=== PATIENT | male | born 1955 | race Caucasian/White ===

== ENCOUNTER 2016-02-26 15:40 | Inpatient (IN) | payer BC, OTHER ==
[~2016-02-26] VITALS: Ht 180.3 cm; Wt 85.5 kg
[~2016-02-26 15:40] MED LIST: ALLO100T PO; LISI-363 PO; MEVA40TA PO; PRED10 PO; ULTR50TA PO
[2016-02-26 15:46] VITALS: BP 205/115; PULSE 92; RESP 14; TEMP 97.5; O2SAT 95
[2016-02-26 17:30] LABS: AUTOMATED NEUTROPHIL # 5.6 TH/MM3 (1.8-7.7); BASOPHIL # 0.1 TH/MM3 (0-0.2); EOSINOPHIL # 0.1 TH/MM3 (0-0.4); EOSINOPHIL % 1.3 % (0.0-4.0); HEMATOCRIT 33.6 % (39.0-51.0); LYMPH % 18.9 % (9.0-44.0); LYMPHOCYTE # 1.5 TH/MM3 (1.0-4.8); MEAN CELL VOLUME 75.6 FL (80.0-100.0); MEAN CORPUSCULAR HEMOGLOBIN 24.8 PG (27.0-34.0); MEAN CORPUSCULAR HGB CONC 32.8 % (32.0-36.0); MONO % 8.7 % (0.0-8.0); NEUT % 70.1 % (16.0-70.0); PLATELET COUNT 297 TH/MM3 (150-450); RED BLOOD COUNT 4.44 MIL/MM3 (4.50-5.90); WHITE BLOOD COUNT 7.9 TH/MM3 (4.0-11.0)
[2016-02-26 17:32] LABS: HEMO FLAGS AUTO DIFF
[2016-02-26 17:49] LABS: ANION GAP 9 MEQ/L (5-15); AST (GOT) 17 U/L (15-37); BICARBONATE 24.9 MEQ/L (21.0-32.0); BLOOD UREA NITROGEN 22 MG/DL (7-18); CHLORIDE 106 MEQ/L (98-107); GLOMERULAR FILTRATION RATE 86 ML/MIN (>89); POTASSIUM 4.1 MEQ/L (3.5-5.1); SODIUM (NA) 140 MEQ/L (136-145)
[2016-02-26 17:52] LABS: APTT (PATIENT) 29.9 SEC (24.3-30.1); INTERNATIONAL NORMALIZED RATIO 1.2 RATIO; PROTHROMBIN TIME - PATIENT 13.9 SEC (9.8-11.6)
[2016-02-26 17:53] LABS: ALKALINE PHOSPHATASE 55 U/L (45-117); ALT (GPT) 34 U/L (12-78); TOTAL BILIRUBIN ADULT 0.5 MG/DL (0.2-1.0)
[2016-02-26 18:17] LABS: OVALOCYTES 1+ (NORMAL); PLATELET ESTIMATE SMEAR NORMAL (NORMAL); PLATELET MORPHOLOGY NORMAL (NORMAL); SCAN/DIFF AUTO DIFF CONFIRMED
[2016-02-26 19:15] VITALS: BP 185/90; PULSE 90; RESP 16; O2SAT 99
[2016-02-26] MEDS ORDERED: LISI-515 PO (19:17)
[2016-02-26] MEDS ORDERED: LOVA40TA PO (19:17)
[2016-02-26] MEDS ORDERED: PANTOPRAZOLE INJ 80 MG in SODIUM CHLORIDE 0.9% INJ 35 ML IV ONE (19:45)
[2016-02-26] MEDS ORDERED: ONDANSETRON HCL 4 MG/2 ML VIAL IV ONE (19:45)
[2016-02-26] MEDS ORDERED: SODIUM CHLOR 0.9% 1000 ML INJ 1,000 ML IV ONE (19:45)
[2016-02-26] MEDS ORDERED: PANTOPRAZOLE INJ 80 MG in SODIUM CHLORIDE 0.9% INJ 100 ML IV SCH (19:45)
--- NOTE | 2016-02-26 19:45 | PD ---
HPI Chief Complaint: GI Complaint Time Seen by Provider: 19:35 Travel History International Travel<30 days: No Contact w/Intl Traveler<30days: No Traveled to known affect area: No History of Present Illness HPI The patient is a 60 year old male who presents to the [facility] emergency department with a history of on beginning to have lax tarry stools. The patient reports that he's been moving his bowels 2-3 times per day. He reports that this is typical for him. He denies having any nausea or vomiting. He reports that he is also had some abdominal bloating, reflux symptoms, and more frequent belching. He denies taking any acid reducers at this time. He reports that he does have a history in the past of a bleeding ulcer, last treated in 2012. He reports that he called his primary care doctor's office regarding this and was sent to the emergency department today. He reports that his primary care doctor is Dr. Ariela Ramos. The patient reports that he felt slightly lightheaded when he arrived in the emergency department, however otherwise he has not felt lightheaded, or weak. The patient denies any recent fevers, cough, congestion, neck pain, chest pain, shortness of breath, urinary symptoms, or neurologic symptoms. PFS Past Medical History Narrative Medical The patient's past medical history is significant for peptic ulcer disease, hyperlipidemia, hypertension High Cholesterol: Yes Diminished Hearing: No Hypertension: Yes Kidney Stones: Yes Medical other: Yes (GASTRIC ULCER BLEEDING) Tetanus Vaccination: Unknown Influenza Vaccination: Yes Past Surgical History Narrative Surgical The patient denies any past surgical history. Surgical History: No Previous Surgery Social History Alcohol Use: Yes (FEW TIMES PER WEEK) Tobacco Use: No Substance Use: No Allergies-Medications (Allergen,Severity, Reaction): Coded Allergies: No Known Allergies (Unverified , 02/26/16) Reported Meds & Prescriptions Reported Meds & Active Scripts Active Reported Lovastatin 40 Mg Tab 40 Mg PO DAILY Lisinopril 20 Mg Tab 20 Mg PO DAILY Review of Systems Except as stated in HPI: all other systems reviewed are Neg General / Constitutional: No: Fever Eyes: No: Visual changes HENT: No: Headaches Cardiovascular: No: Chest Pain or Discomfort Respiratory: No: Shortness of Breath Gastrointestinal: Positive: Abdominal Pain, Changes in Bowel Habits, Indigestion Genitourinary: No: Dysuria Musculoskeletal: No: Pain Skin: No Rash Neurologic: No: Weakness Psychiatric: No: Depression Endocrine: No: Polydipsia Hematologic/Lymphatic: No: Easy Bruising Physical Exam Narrative General: The patient is a well-developed well-nourished male in no acute distress. Head and Neck exam: Head is normocephalic atraumatic. Eyes: People are equal round and reactive to light. Nose: Midline septum with pink mucous membranes Mouth: Dentition unremarkable. Moist mucus membranes. Posterior oropharynx is not erythematous. No tonsillar hypertrophy. Uvula midline. Airway patent. Neck: No palpable lymphadenopathy. No nuchal rigidity. No thyromegaly. Cardiovascular: Regular rate and rhythm without murmurs, gallops, or rubs. Lungs: Clear to auscultation bilaterally. No wheezes, rhonchi, or rales. Abdomen: Soft, with reported discomfort on deep palpation in the right lower quadrant of the abdomen. No other pinpoint tenderness on palpation. No guarding, rebound, or rigidity. Normal bowel sounds are audible. Extremities: No clubbing, cyanosis, or edema. 2+ pulses in all 4 extremities. No calf tenderness on palpation. Back: No spinous process tenderness to palpation. No costovertebral angle tenderness to palpation. Neurologic Exam: Grossly nonfocal. Skin Exam: No rash noted. Intact skin that is warm and dry. Data Data Last Documented VS Vital Signs Date Time Temp Pulse Resp B/P Pulse Ox O2 Delivery O2 Flow Rate FiO2 02/26/16 19:18 16 02/26/16 15:46 97.5 92 205/115 95 Room Air Orders Complete Blood Count With Diff (02/26/16 16:39) Comprehensive Metabolic Panel (02/26/16 16:39) Prothrombin Time / Inr (Pt) (02/26/16 16:39) Act Partial Throm Time (Ptt) (02/26/16 16:39) Type And Screen (02/26/16 16:39) Ct Abd/Pel W Iv Contrast(Rout) (02/26/16 19:45) Sodium Chlor 0.9% 1000 Ml Inj (Ns 1000 M (02/26/16 19:45) Ondansetron Inj (Zofran Inj) (02/26/16 19:45) Pantoprazole Inj (Protonix Inj) (02/26/16 19:45) Pantoprazole Inj (Protonix Inj) (02/26/16 19:45) Oral Contrast - Adult (02/26/16 20:03) Admit Order (Ed Use Only) (02/26/16 20:07) Labs Laboratory Tests Test 02/26/16 16:55 White Blood Count 7.9 TH/MM3 Red Blood Count 4.44 MIL/MM3 Hemoglobin 11.0 GM/DL Hematocrit 33.6 % Mean Corpuscular Volume 75.6 FL Mean Corpuscular Hemoglobin 24.8 PG Mean Corpuscular Hemoglobin 32.8 % Concent Red Cell Distribution Width 17.0 % Platelet Count 297 TH/MM3 Mean Platelet Volume 9.7 FL Neutrophils (%) (Auto) 70.1 % Lymphocytes (%) (Auto) 18.9 % Monocytes (%) (Auto) 8.7 % Eosinophils (%) (Auto) 1.3 % Basophils (%) (Auto) 1.0 % Neutrophils # (Auto) 5.6 TH/MM3 Lymphocytes # (Auto) 1.5 TH/MM3 Monocytes # (Auto) 0.7 TH/MM3 Eosinophils # (Auto) 0.1 TH/MM3 Basophils # (Auto) 0.1 TH/MM3 CBC Comment AUTO DIFF Differential Comment AUTO DIFF CONFIRMED Platelet Estimate NORMAL Platelet Morphology Comment NORMAL Ovalocytes 1+ Prothrombin Time 13.9 SEC Prothromb Time International 1.2 RATIO Ratio Activated Partial 29.9 SEC Thromboplast Time Sodium Level 140 MEQ/L Potassium Level 4.1 MEQ/L Chloride Level 106 MEQ/L Carbon Dioxide Level 24.9 MEQ/L Anion Gap 9 MEQ/L Blood Urea Nitrogen 22 MG/DL Creatinine 0.91 MG/DL Estimat Glomerular Filtration 86 ML/MIN Rate Random Glucose 90 MG/DL Calcium Level 8.9 MG/DL Total Bilirubin 0.5 MG/DL Aspartate Amino Transf 17 U/L (AST/SGOT) Alanine Aminotransferase 34 U/L (ALT/SGPT) Alkaline Phosphatase 55 U/L Total Protein 7.1 GM/DL Albumin 4.0 GM/DL Blood Type AB POSITIVE Antibody Screen NEGATIVE Blood Bank Comment [facility] Medical Decision Making Medical Screen Exam Complete: Yes Emergency Medical Condition: Yes Medical Record Reviewed: Yes Differential Diagnosis Peptic ulcer disease, versus AVM malformation, versus diverticulosis, versus hemorrhagic esophagitis Narrative Course During the course of the patients emergency department visit, the patients history, examination, and differential diagnosis were reviewed with the patient. The patient had IV access obtained and blood work sent for analysis. The patient was placed on a gold wheel blocker and polisher with oximetry and blood pressure monitoring. The patient was provided Protonix 80 mg IV followed by Protonix 80 mg IV per hour. The patients laboratory studies were reviewed and remarkable for a white count of 7.9, hemoglobin 11, MCV is low at 75.6, platelets 297, neutrophils 70.1, monocytes 8.7. CMP is remarkable for BUN of 22, INR 1.2. The patient's elevated BUN and low MCV and low hemoglobin are consistent with a GI bleed. The patient's rectal examination is Hemoccult positive. Radiology studies were reviewed and remarkable for a CT scan of the abdomen and pelvis that shows no acute abnormality, diverticulosis, however no evidence of diverticulitis, a tiny left renal mass is possible on one of the images on CT scan of the abdomen and pelvis. Radiologist recommended a nonemergent MRI to further evaluate. The patients results were discussed with the patient, including the plan of care. I explained that further testing and/ or monitoring is indicated based on the patients history, examination, and/ or laboratory findings. Therefore, I recommended admission for additional evaluation. The patient expressed understanding and was agreeable with this plan. The patient was admitted to the hospital in stable condition and sent to a bed under the [facility] of the [facility]. Physician Communication Physician Communication The patient's case is discussed with Dr. Zepeda, the patient's primary care physician. He reports that he is no longer admitting patients to the hospital, therefore he recommends that the patient be discussed with the [facility] service for admission. The patient's case was discussed with Dr. Quijano who did agree to admit the patient for further evaluation and treatment at this time. Diagnosis Primary Impression: GI bleed Qualified Code: K92.2 - Gastrointestinal hemorrhage, unspecified gastrointestinal hemorrhage type Admitting Information Admitting Physician Requests: Lizette Cordova MD Feb 26, 2016 19:45
[2016-02-26] MEDS ORDERED: DIATRIZOATE MEGLUM/DIATRIZOATE SOD 9 ML CUP ONE (20:23)
[2016-02-26] MEDS ORDERED: NALOXONE HCL 0.4 MG/ML AMP IV PRN (20:45)
[2016-02-26] MEDS ORDERED: SODIUM CHLORIDE 0.9% FLUSH 5 ML FLUSH FLUSH PRN (20:45)
[2016-02-26] MEDS ORDERED: IOHEXOL 350 MG/ML 10 ML VIAL (for RAD DIAG) IV ONE (21:05)
--- NOTE | 2016-02-26 21:26 | RADRPT ---
EXAM DATE/TIME: 02/26/2016 21:03 [place] COMPARISON: No previous studies available for comparison. INDICATIONS : Abdominal pain and bloody stools. IV CONTRAST: 95 cc Omnipaque 350 (iohexol) IV ORAL CONTRAST: Prescribed oral contrast ingested. RADIATION DOSE: 12.95 CTDIvol (mGy) MEDICAL HISTORY : Hypertension. Renal calculi. SURGICAL HISTORY : Colon resection. ENCOUNTER: Initial ACUITY: 4 - 6 days PAIN SCALE: 5/10 LOCATION: Bilateral lower quadrant TECHNIQUE: Volumetric scanning of the abdomen and pelvis was performed. Using automated exposure control and ad justment of the mA and/or kV according to patient size, radiation dose was kept as low as reasonably achievable to obtain optimal diagnostic quality images. FINDINGS: Hepatic steatosis. Nonobstructing 6 mm calculus in the right renal pelvis. 2 mm obstructing lower neli e right renal calculus. On axial image 36 at the mid left kidney anteriorly a 7 mm slightly hypodense mass is suspected of the left kidney as seen on coronal image 55. The possibility of a small solid m ass is not excluded. Urinary bladder and prostate are unremarkable. There is diverticulosis is of the sigmoid colon without evidence of diverticulitis. Stomach unremarkable. Appendix normal. Scattered a therosclerotic calcifications are seen. Spleen, pancreas, adrenal glands are normal. There is no vincent opathy. No aneurysm. The osseous structures are intact. Lung bases are clear. CONCLUSION: 1. Hepatic steatosis. 2. Nonobstructing right renal calculi. 3. Mild atherosclerosis. 4. Diverticulosis without diverticulitis. 5. Question tiny left solid renal mass on image 36. MRI abdomen with and without contrast recommended on a nonemergent outpatient basis. Kevyn Hall MD on February 26, 2016 at 21:21 Board Certified Radiologist. This report was verified electronically.
[2016-02-26] MEDS: SODIUM CHLORIDE 0.9% FLUSH 5 ML FLUSH FLUSH SCH (22:21)
[2016-02-26 22:46] LABS: HEMATOCRIT 25.8 % (39.0-51.0); REVIEW FLAG FINAL
[2016-02-26 23:30] VITALS: BP 170/88; PULSE 80; RESP 16; O2SAT 99
[2016-02-27] VITALS (10 sets, daily range): BP systolic 127–173; BP diastolic 62–88; PULSE 63–91; RESP 14–18; TEMP 97.1–98.3; O2SAT 98–100
[2016-02-27 02:43] LABS: HEMATOCRIT 26.6 % (39.0-51.0); REVIEW FLAG FINAL
--- NOTE | 2016-02-27 02:49 | HHI.HP ---
[facility] Unknown Admission Diagnosis GI Bleed Diagnoses: Chief Complaint: Black stool Travel History International Travel<30 Days: No Contact w/Intl Traveler <30 Da: No Traveled to Known Affected Are: No History of Present Illness History from patient, ER physician communication, and review of medical records. Patient reported that he has been having black color stools since . He reports he has history of peptic ulcer disease at which time he presented with similar black color stools. This was back in 2012. He decided therefore to contact to hospital. He denies any chest pain/shortness of breath/dizziness/near syncope episode. He denies any nausea or vomiting or hematemesis or hematochezia. Denies any hematuria. Reports of mild abdominal cramping. Patient denies taking any blood thinners at home. He is not on aspirin. Not taking any NSAIDs. Denies drinking alcohol heavily. He reports that since the last time he had EGD in 2012 for this peptic ulcer disease, he has not had a repeat EGD. Review of Systems Constitutional: DENIES: Fatigue, Fever, Weight gain, Weight loss, Chills, Dizziness Respiratory: DENIES: Apneas, Cough, Wheezing, Hemoptysis, Sputum production, Shortness of breath Cardiovascular: DENIES: Chest pain, Palpitations, Syncope, Dyspnea on Exertion , PND, Orthopnea Gastrointestinal: COMPLAINS OF: Abdominal pain, Black stools, DENIES: Bloody stools, Constipation, Diarrhea, Nausea, Vomiting Genitourinary: DENIES: Urinary frequency, Urinary incontinence, Urgency, Hematuria, Dysuria, Nocturia Neurologic: DENIES: Abnormal gait, Headache, Paresthesias, Seizures, Speech Problems Past Family Social History Past Medical History Hypertension Hyperlipidemia Peptic ulcer disease History of renal stones Gout Past Surgical History EGD Reported Medications Patient's medications list on EMRreviewed. Allergies: Coded Allergies: No Known Allergies (Unverified , 02/26/16) Family History Reports history of aortic valve replacement in his father at 82 years old. Father 5 months after this surgery. His father had history of coronary artery disease with DE around 40 years old. History of mother having kidney stones. Social History Denies smoking/alcohol abuse/drug abuse. Physical Exam Vital Signs Vital Signs Date Time Temp Pulse Resp B/P Pulse Ox O2 Delivery O2 Flow Rate FiO2 02/26/16 19:18 16 02/26/16 15:46 97.5 92 14 205/115 95 Room Air Physical Exam GENERAL: This is a well-nourished, well-developed patient, in no apparent distress. SKIN: No rashes, ecchymoses or lesions. Cool and dry. HEAD: Atraumatic. Normocephalic. No temporal or scalp tenderness. EYES: No scleral icterus. No injection or drainage. ENT: Nose without bleeding, purulent drainage or septal hematoma. Airway patent. NECK: Trachea midline. No JVD CARDIOVASCULAR: Regular rate and rhythm without murmurs, gallops, or rubs. RESPIRATORY: Clear to auscultation. Breath sounds equal bilaterally. No wheezes , rales, or rhonchi. GASTROINTESTINAL: Abdomen soft, non-tender, nondistended.. No guarding. MUSCULOSKELETAL: Extremities without clubbing, cyanosis, or edema. No calf tenderness. NEUROLOGICAL: Awake and alert. Motor and sensory grossly within normal limits. Normal speech. Laboratory Laboratory Tests Test 02/26/16 02/26/16 02/26/16 02/27/16 16:55 20:31 22:20 02:30 White Blood Count 7.9 Red Blood Count 4.44 Hemoglobin 11.0 8.8 8.9 Hematocrit 33.6 25.8 26.6 Mean Corpuscular Volume 75.6 Mean Corpuscular Hemoglobin 24.8 Mean Corpuscular Hemoglobin 32.8 Concent Red Cell Distribution Width 17.0 Platelet Count 297 Mean Platelet Volume 9.7 Neutrophils (%) (Auto) 70.1 Lymphocytes (%) (Auto) 18.9 Monocytes (%) (Auto) 8.7 Eosinophils (%) (Auto) 1.3 Basophils (%) (Auto) 1.0 Neutrophils # (Auto) 5.6 Lymphocytes # (Auto) 1.5 Monocytes # (Auto) 0.7 Eosinophils # (Auto) 0.1 Basophils # (Auto) 0.1 CBC Comment AUTO DIFF Differential Comment AUTO DIFF CONFIRMED Platelet Estimate NORMAL Platelet Morphology Comment NORMAL Ovalocytes 1+ Prothrombin Time 13.9 Prothromb Time International 1.2 Ratio Activated Partial 29.9 Thromboplast Time Sodium Level 140 Potassium Level 4.1 Chloride Level 106 Carbon Dioxide Level 24.9 Anion Gap 9 Blood Urea Nitrogen 22 Creatinine 0.91 Estimat Glomerular Filtration 86 Rate Random Glucose 90 Calcium Level 8.9 Total Bilirubin 0.5 Aspartate Amino Transf 17 (AST/SGOT) Alanine Aminotransferase 34 (ALT/SGPT) Alkaline Phosphatase 55 Total Protein 7.1 Albumin 4.0 Blood Type AB POSITIVE AB POSITIVE AB POSITIVE Antibody Screen NEGATIVE Blood Bank Comment B Crossmatch Leukocyte-Reduced Red Blood Cells Result Diagram: 02/27/16 0230 02/26/16 1655 Imaging Last 48 hours Impressions Abdomen/Pelvis CT 02/26/161944 Signed Impressions: Service Date/Time: Friday, February 26, 2016 21:03 - CONCLUSION: 1. Hepatic steatosis. 2. Nonobstructing right renal calculi. 3. Mild atherosclerosis. 4. Diverticulosis without diverticulitis. 5. Question tiny left solid renal mass on image 36. MRI abdomen with and without contrast recommended on a nonemergent outpatient basis. Kevyn Hall MD Assessment and Plan Problem List: (1) GI bleed ICD Code: K92.2 Status: Acute Assessment and Plan Impression: Upper GI bleedlikely due to peptic ulcer disease. Hypertension Hyperlipidemia Peptic ulcer disease History of renal stones Gout Plan: Nothing by mouth. Type and cross. Serial hemoglobin hematocrit. Repeat hemoglobin dropped to 8.8. Therefore transfuse 2 units of PRBC. GI consult. Protonix IV drip. Hold all blood thinners. Hold NSAIDs. CT abdomen and pelvispersonally reviewed. Nonobstructive renal calculi on the right. Diverticulosis without diverticulitis. Questionable left renal solid mass. MRI recommended as nonemergent outpatient study. DVT prophylaxison SCD. GI prophylaxis on pantoprazole. Discussed Condition With Patient, ER physician, ER nurse Physician Certification 2 Midnight Certification Type: Admission for Inpatient Services Order for Inpatient Services The services are ordered in accordance with Medicare regulations or non- Medicare payer requirements, as applicable. In the case of services not specified as inpatient-only, they are appropriately provided as inpatient services in accordance with the 2-midnight benchmark. Estimated LOS (days): 3 days is the estimated time the patient will need to remain in the hospital, assuming treatment plan goals are met and no additional complications. Post-Hospital Plan: Home Problem Qualifiers (1) GI bleed: Qualified Code: K92.2 - Gastrointestinal hemorrhage, unspecified gastrointestinal hemorrhage type Guilherme Quijano MD Feb 27, 2016 02:49
[2016-02-27] MEDS: SODIUM CHLORIDE 0.9% FLUSH 5 ML FLUSH FLUSH SCH ×2 (08:51→19:46)
[2016-02-27] MEDS: PANTOPRAZOLE INJ 80 MG in SODIUM CHLORIDE 0.9% INJ 100 ML IV SCH ×2 (08:56→18:37)
[2016-02-27 09:10] LABS: REVIEW FLAG FINAL
--- NOTE | 2016-02-27 09:36 | PD.CONS ---
HPI History of Present Illness This is a 60 year old male patient with a hx of PUD back in 2013 who came to the ER for evaluation of melena. He started having black tarry stool last . He has not had any associated nausea or vomiting. He has had some mild mid abdominal cramping, but no significant pain. He does report that he has had some heartburn and frequent belching. He did take some OTC PPI for his symptoms. He states this did help some, but did not completely alleviate his symptoms. He denies any abnormal weight loss, decreased appetite, constipation, hematochezia. He occasionally has diarrhea, but nothing recently. He does not take any NSAIDs. He has not had an EGD since 2012. He has not taken any pepto bismol. Last EGD (06/13/13)-------> There was LA Class A esophagitis noted, erythematous gastritis in the gastric antrum, retroflexed views revealed no abnormalities. Pathology was acute gastritis with edema consistent with erosive gastritis, immunohistochemistry for H. Pylori was negative. (Willow Gupta) PFSH Past Medical History Hypertension Hyperlipidemia Peptic ulcer disease History of renal stones Gout Past Surgical History EGD (Willow Gupta) Coded Allergies: No Known Allergies (Unverified , 02/26/16) Medications Allergies Coded Allergies Type Severity Reaction Last Updated Verified No Known Allergies 02/26/16 No Active Scripts Medications Dose Route/Sig Days Date Category Lovastatin 40 Mg Tab 40 Mg PO DAILY 02/26/16 Reported Lisinopril 20 Mg Tab 20 Mg PO DAILY 02/26/16 Reported Family History Reports history of aortic valve replacement in his father at 82 years old. Father 5 months after this surgery. His father had history of coronary artery disease with AL around 40 years old. History of mother having kidney stones. Social History Denies smoking/alcohol abuse/drug abuse. (Willow Gupta) Review of Systems Constitutional: COMPLAINS OF: Weight gain (5 lbs around the holidays), DENIES : Diaphoretic episodes, Fatigue, Fever, Weight loss, Chills Respiratory: DENIES: Cough, Shortness of breath Cardiovascular: DENIES: Chest pain Gastrointestinal: COMPLAINS OF: Abdominal pain, Black stools, Diarrhea ( occasionally ), Heartburn (frequent belching), DENIES: Bloody stools, Constipation, Nausea, Vomiting, Hematemesis Musculoskeletal: DENIES: Joint pain, Back pain Integumentary: DENIES: Abnormal pigmentation, Rash Hematologic/lymphatic: DENIES: Bruising Psychiatric: DENIES: Confusion (GuptaWillow Grimaldo YULAINA) GI Exam Vitals I&O Vital Signs Date Time Temp Pulse Resp B/P Pulse Ox O2 Delivery O2 Flow Rate FiO2 02/27/16 06:24 98.1 80 14 159/73 100 Room Air 02/27/16 04:50 98.1 73 14 155/78 98 Room Air 02/27/16 04:35 97.9 75 16 159/79 100 Room Air 02/27/16 04:34 97.9 79 16 173/88 99 Room Air 02/27/16 03:30 97.9 83 16 166/84 99 Room Air 02/27/16 03:16 98.3 79 16 165/83 99 Room Air 02/26/16 23:30 80 16 170/88 99 Room Air 02/26/16 19:18 16 02/26/16 19:15 90 16 185/90 99 Room Air 02/26/16 15:46 97.5 92 14 205/115 95 Room Air I/O 02/26/16 02/26/16 02/26/16 02/27/16 02/27/16 02/27/16 07:00 15:00 23:00 07:00 15:00 23:00 Intake Total 500 ml Balance 500 ml Intake Packed Cells 500 ml Imaging Last Impressions Abdomen/Pelvis CT 02/26/161944 Signed Impressions: Service Date/Time: Friday, February 26, 2016 21:03 - CONCLUSION: 1. Hepatic steatosis. 2. Nonobstructing right renal calculi. 3. Mild atherosclerosis. 4. Diverticulosis without diverticulitis. 5. Question tiny left solid renal mass on image 36. MRI abdomen with and without contrast recommended on a nonemergent outpatient basis. Kevyn Hall MD Laboratory Test 02/26/16 02/26/16 02/26/16 02/27/16 16:55 20:31 22:20 02:30 White Blood Count 7.9 TH/MM3 Red Blood Count 4.44 MIL/MM3 Hemoglobin 11.0 GM/DL 8.8 GM/DL 8.9 GM/DL Hematocrit 33.6 % 25.8 % 26.6 % Mean Corpuscular Volume 75.6 FL Mean Corpuscular Hemoglobin 24.8 PG Mean Corpuscular Hemoglobin 32.8 % Concent Red Cell Distribution Width 17.0 % Platelet Count 297 TH/MM3 Mean Platelet Volume 9.7 FL Neutrophils (%) (Auto) 70.1 % Lymphocytes (%) (Auto) 18.9 % Monocytes (%) (Auto) 8.7 % Eosinophils (%) (Auto) 1.3 % Basophils (%) (Auto) 1.0 % Neutrophils # (Auto) 5.6 TH/MM3 Lymphocytes # (Auto) 1.5 TH/MM3 Monocytes # (Auto) 0.7 TH/MM3 Eosinophils # (Auto) 0.1 TH/MM3 Basophils # (Auto) 0.1 TH/MM3 CBC Comment AUTO DIFF Differential Comment AUTO DIFF CONFIRMED Platelet Estimate NORMAL Platelet Morphology Comment NORMAL Ovalocytes 1+ Prothrombin Time 13.9 SEC Prothromb Time International 1.2 RATIO Ratio Activated Partial 29.9 SEC Thromboplast Time Sodium Level 140 MEQ/L Potassium Level 4.1 MEQ/L Chloride Level 106 MEQ/L Carbon Dioxide Level 24.9 MEQ/L Anion Gap 9 MEQ/L Blood Urea Nitrogen 22 MG/DL Creatinine 0.91 MG/DL Estimat Glomerular Filtration 86 ML/MIN Rate Random Glucose 90 MG/DL Calcium Level 8.9 MG/DL Total Bilirubin 0.5 MG/DL Aspartate Amino Transf 17 U/L (AST/SGOT) Alanine Aminotransferase 34 U/L (ALT/SGPT) Alkaline Phosphatase 55 U/L Total Protein 7.1 GM/DL Albumin 4.0 GM/DL Blood Type AB POSITIVE AB POSITIVE AB POSITIVE Antibody Screen NEGATIVE Blood Bank Comment B Crossmatch Leukocyte-Reduced Red Blood Cells Test 02/27/16 08:52 Hemoglobin 10.8 GM/DL Hematocrit 32.0 % Physical Examination HEENT: Normocephalic; atraumatic; no jaundice. Throat is clear. NECK: Neck is supple, no JVD, no lymphadenopathy. CHEST: CTA CARDIAC: RRR ABDOMEN: Soft, nondistended, nontender; no hepatosplenomegaly; bowel sounds are present in all four quadrants. EXTREMITIES: No clubbing, cyanosis, or edema. SKIN: Normal; no rash; no jaundice. PENSION MANAGER: No focal deficits; alert and oriented times three. (Willow Gupta) Assessment and Plan Plan ASSESSMENT: - Upper GI bleeding, Melena. Pt with hx of PUD in 2012. Last EGD (06/13/13)---- ---> There was LA Class A esophagitis noted, erythematous gastritis in the gastric antrum, retroflexed views revealed no abnormalities. Pathology was acute gastritis with edema consistent with erosive gastritis, immunohistochemistry for H. Pylori was negative. He has been having heartburn, frequent belching, abdominal cramping and started having melena last night. Abdomen/Pelvis CT (02/26/16)----> 1. Hepatic steatosis. 2. Nonobstructing right renal calculi. 3. Mild atherosclerosis. 4. Diverticulosis without diverticulitis. 5. Question tiny left solid renal mass on image 36. MRI abdomen with and without contrast recommended on a nonemergent outpatient basis. No NSAIDs. Protonix Gtt. S/P 2 units of prbc. HH stable at 10.8/32.0. - Anemia secondary to acute blood loss. S/P 10.8/32.0. - GERD, Belching. PPI - Questionable tiny solid renal mass, MRI with and without contrast recommended on a nonemergent outpatient basis. Per primary PLAN: - Plan for egd today - Obtain consents - NPO - Protonix Gtt - Monitor HH - Transfuse as necessary - Supportive care - Further recommendations to follow - Pt seen and examined by Dr. Velazquez and myself and this note is written on his behalf (Willow Gupta) Physician Comments Patient seen and examined Agree with above Continue with current supportive care Monitor labs EGD next (Gerry Velazquez MD) Willow Gupta Feb 27, 2016 09:36 Gerry Velazquez MD Feb 27, 2016 15:39
--- NOTE | 2016-02-27 15:57 | PD.PROCEDR ---
GI Procedure REFERRING PHYSICIAN ASHLEY PROCEDURE PERFORMED EGD INDICATION FOR PROCEDURE Melena and anemia PROCEDURE: The procedure, risks and benefits were discussed with Mr. Bravo and informed consent was obtained. Anesthesia sedated him with Diprivan. He was placed in the left lateral decubitus position. EGD: The Pentax videoscope was introduced through the oropharynx and advanced to the second portion of the duodenum under direct visualization. Retroflexion was performed in the stomach. FINDINGS: The esophagus this appeared to be unremarkable and within normal limits The stomach there was a small hiatal hernia the patient was also noted to have a small antral ulcer clean base no visible vessel edges prominent this was biopsied risk of bleeding is minimal The duodenum this appeared to be unremarkable and within normal limits ESTIMATED BLOOD LOSS: None SPECIMENS REMOVED: Antral biopsies COMPLICATIONS: None IMPRESSION: Small hiatal hernia Antral ulcer PLAN: Await biopsy PPI Avoid NSAIDs and aspirin Advance diet Monitor labs EGD in 2 months Gerry Velazquez MD Feb 27, 2016 15:56
[2016-02-27] MEDS ORDERED: PROPOFOL 200 MG/20 ML AMP IV ONE (16:07)
[2016-02-28 02:31] VITALS: BP 131/72; PULSE 87; RESP 21; TEMP 97.9; O2SAT 98
[2016-02-28] MEDS: PANTOPRAZOLE INJ 80 MG in SODIUM CHLORIDE 0.9% INJ 100 ML IV SCH (04:15)
[2016-02-28 06:04] VITALS: BP 127/78; PULSE 67; RESP 21; TEMP 97.4; O2SAT 98
[2016-02-28 07:36] LABS: HEMATOCRIT 32.3 % (39.0-51.0); MEAN CELL VOLUME 77.9 FL (80.0-100.0); MEAN CORPUSCULAR HEMOGLOBIN 26.1 PG (27.0-34.0); MEAN CORPUSCULAR HGB CONC 33.4 % (32.0-36.0); PLATELET COUNT 217 TH/MM3 (150-450); RED BLOOD COUNT 4.14 MIL/MM3 (4.50-5.90); RED CELL DISTRIBUTION WIDTH 18.1 % (11.6-17.2); REVIEW FLAG FINAL; WHITE BLOOD COUNT 8.5 TH/MM3 (4.0-11.0)
[2016-02-28 07:49] VITALS: BP 136/76; PULSE 61; RESP 20; TEMP 98.1; O2SAT 95
[2016-02-28] MEDS ORDERED: PANT40TA3 PO (07:57)
--- NOTE | 2016-02-28 07:58 | HHI.DCPOC ---
Discharge Care Plan Diagnosis: (1) GI bleed Goals to Promote Your Health * To prevent worsening of your condition and complications * To maintain your health at the optimal level Directions to Meet Your Goals Take your medications as prescribed Follow your dietary instruction Follow activity as directed Keep your appointments as scheduled Take your immunizations and boosters as scheduled If your symptoms worsen call your PCP, if no PCP go to Urgent Care Center or Emergency Room Smoking is Dangerous to Your Health. Avoid second hand smoke Call the 24-hour hour crisis hotline for domestic abuse at Ga Powell MD Feb 28, 2016 07:58
--- NOTE | 2016-02-28 08:21 | HHI.PR ---
Subjective Remarks Follow up GI bleed. Patient has no complaints. He did have some more dark stool this morning. Tolerated supper last night. No abdominal pain, nausea, vomiting. Objective Vitals Vital Signs Date Time Temp Pulse Resp B/P Pulse Ox O2 Delivery O2 Flow Rate FiO2 02/28/16 07:49 98.1 61 20 136/76 95 02/28/16 06:04 97.4 67 21 127/78 98 02/28/16 02:31 97.9 87 21 131/72 98 02/27/16 22:11 91 02/27/16 20:00 98.0 67 18 127/62 98 02/27/16 16:58 97.1 63 16 146/84 100 02/27/16 16:27 68 16 126/81 99 02/27/16 16:22 67 16 126/81 99 02/27/16 16:17 97.1 66 16 129/81 99 02/27/16 10:23 71 16 140/86 100 Room Air I/O 02/27/16 02/27/16 02/27/16 02/28/16 02/28/16 02/28/16 07:00 15:00 23:00 07:00 15:00 23:00 Intake Total 500 ml 425 ml 240 ml Balance 500 ml 425 ml 240 ml Intake Oral 240 ml IV Total 425 ml Packed Cells 500 ml # Voids 2 1 # Bowel Movements 1 Result Diagram: 02/28/16 0702 02/26/16 1655 Imaging Last Impressions Abdomen/Pelvis CT 02/26/161944 Signed Impressions: Service Date/Time: Friday, February 26, 2016 21:03 - CONCLUSION: 1. Hepatic steatosis. 2. Nonobstructing right renal calculi. 3. Mild atherosclerosis. 4. Diverticulosis without diverticulitis. 5. Question tiny left solid renal mass on image 36. MRI abdomen with and without contrast recommended on a nonemergent outpatient basis. Kevyn Hall MD Objective Remarks General: No acute distress. Heart: Regular rate and rhythm. No murmur. Lungs: Clear to auscultation bilaterally. No wheezes, rales, or rhonchi. Breathing is nonlabored. Abdomen: Soft, nontender, nondistended. Extremities: No lower extremity edema. Psych: Alert and oriented. Procedures 02/27/16 EGD Urinary Catheter: No Vascular Central Line Catheter: No A/P Problem List: (1) GI bleed ICD Code: K92.2 Status: Acute Assessment and Plan 1. Upper GI bleed: Status post EGD. H&H are stable following transfusion. Appreciate GI recommendations. Continue Protonix. Avoid NSAIDs. 2. DVT prophylaxis: SCDs. Avoid chemical prophylaxis secondary to GI bleeding. 3. Hypertension: Continue lisinopril. 4. Hyperlipidemia: Continue statin. Problem Qualifiers (1) GI bleed: Qualified Code: K92.2 - Gastrointestinal hemorrhage, unspecified gastrointestinal hemorrhage type Ga Powell MD Feb 28, 2016 08:21
[2016-02-28] MEDS: SODIUM CHLORIDE 0.9% FLUSH 5 ML FLUSH FLUSH SCH (09:00)
--- NOTE | 2016-02-28 10:44 | EKG ---
Date Performed: 02/27/2016 Time Performed: 14:19:49 PTAGE: 60 years EKG: Sinus rhythm NONSPECIFIC T-WAVE ABNORMALITY BORDERLINE ECG NO PREVIOUS TRACING DOCTOR: Elpidio Marie Interpretating Date/Time 02/28/2016 10:43:13
== END 2016-02-28 11:34 | disposition home or self-care (01) | DRG 378 ==
LOC: NEPE 15:40 → NEDA 20:10 → NEDH 02-27 00:10 → OBSVTOIN 02-27 02:49 → NEPGCP 02-27 16:56
PROVIDERS: ADMIT Family Medicine; ATTEND Family Medicine
PROC: 0DB68ZX Excision of Stomach, Via Natural or Artificial Opening Endoscopic, Diagnostic (ICD-10-PCS; principal; 2016-02-27 16:00)
DX: K92.1 Melena (principal); D62 Acute posthemorrhagic anemia; K76.0 Fatty (change of) liver, not elsewhere classified; K25.9 Gastric ulcer, unspecified as acute or chronic, without hemorrhage or perforation; K27.9 Peptic ulcer, site unspecified, unspecified as acute or chronic, without hemorrhage or perforation; N20.0 Calculus of kidney; I10 Essential (primary) hypertension; E78.5 Hyperlipidemia, unspecified; M10.9 Gout, unspecified; K44.9 Diaphragmatic hernia without obstruction or gangrene; K57.90 Diverticulosis of intestine, part unspecified, without perforation or abscess without bleeding
CPT/HCPCS: 36430; 74177; 80053; 85014; 85018; 85025; 85027; 85610; 85730; 86850; 86900; 86901; 86920; 88305; 88312; 93005; C9113; G0378; J2405; J7030; P9016; Q9963; Q9967

== ENCOUNTER → 2016-10-17 | Day surgery (SDC) | payer BC ==
[~2016-10-17] MED LIST changes: -ALLO100T PO; +FUROSEMIDE 20 MG/2 ML VIAL ONE; +GENTAMICIN SULFATE 80 MG/2 ML VIAL ONE; +KETOROLAC TROMETHAMINE 30 MG/ML (IVP) VIAL IV PUSH ONE; +LACTATED RINGER'S 1000 ML INJ 1,000 ML ONE; -LISI-363 PO; +LISI-515 PO; +LOVA40TA PO; -MEVA40TA PO; +MIDAZOLAM HCL 2 MG/2 ML VIAL ONE; +ONDANSETRON HCL 4 MG/2 ML VIAL IV PUSH ONE; +PANT40TA3 PO; -PRED10 PO; +PROPOFOL 200 MG/20 ML AMP IV ONE; +SODIUM CHLORIDE 0.9% 20 ML VIAL ONE; +SODIUM CHLORIDE 0.9% SOLN 100 ML BAG IV ONE; -ULTR50TA PO
--- NOTE | 2016-10-17 18:54 | TN ---
cc: CAROLYN SURESH M.D. DATE OF SURGERY 10/17/16 PREOPERATIVE DIAGNOSIS 1. Distal left ureteral calculus (ICD-10 code N20.1) 2. Right proximal ureteral calculus and (ICD-10 code N20.1). POSTOPERATIVE DIAGNOSIS 1. Distal left ureteral calculus (ICD-10 code N20.1) 2. Right proximal ureteral calculus and (ICD-10 code N20.1). PROCEDURE 1. Cystourethroscopy with left ureteroscopic Holmium laser lithotripsy and stone basket manipulation and (CPT code 63671). 2. Cystourethroscopy with right ureteral stent placement (6-Sudanese x 24 cm) (CPT code 64085). INDICATIONS Mr. Bravo is a 61-year-old gentleman who on routine follow-up imaging for a history of stones was found to have a 9 mm proximal right ureteral calculus and a 5 mm distal left ureteral calculus despite having no symptoms. He presents now for definitive treatment of the left stone and passive dilation for subsequent deep treatment of the right ureteral stone. FINDINGS Normal urethra with some narrowing at the navicularis fossa. There is a mild bulbo-membranous urethral stricture. The prostatic urethra shows bilobar hyperplasia with mild to moderate obstruction. The ureteral orifice is normal size, shape, position effluxing clear urine. There are no sarah tumors, abnormal mucosa or calcifications identified within the bladder. There is no significant trabeculation, diverticula or cellules of the bladder. The imaging does show evidence of a large right radiopaque calcification in the area of the right ureteropelvic junction and on the left in the distal ureteral vesicle junction. The ureteroscopy on the left showed a [place] with partial obstruction in the distal ureter, otherwise, unremarkable and some mild dilatation of the collecting system proximally. PROCEDURE IN DETAIL The procedure as well as the risks and benefits were explained to the patient. Informed consent was obtained. The patient was taken to the major operative theater where he was placed in the supine position. The patient was identified as well as the operative site. [place] time-out was performed in standard fashion. At this time general anesthetic and prophylactic intravenous antibiotics consisting of gentamicin 80 milligrams was administered. After adequate anesthetic he was placed in low dorsolithotomy position, prepped and draped in the usual sterile fashion. Due to some narrowing of the navicularis fossa attempts at placing a 22.5 Sudanese obturator and sheath were unsuccessful and serial dilatation of the distal urethra was performed using Kameron sounds from 12-Sudanese to 24-Sudanese without difficulty and then the 22.5 Sudanese obturator and sheath were placed into the distal urethra and the obturator was exchanged for a 30 degrees lens cystoscope. This was passed through the urethra without difficulty and into the bladder. The bladder was systematically surveyed. Attention was directed to the left ureteral orifice where at this time a 0.035 inch hybrid guidewire was passed without difficulty under fluoroscopic guidance up the ureter into the renal pelvis. The cystoscope was removed leaving the guidewire in place. The guidewire was attached to the drape as a safety wire. The scope was placed back into the bladder again, this time a working wire was placed which was a 0.035 inch Shore guidewire which was placed again under fluoroscopic guidance easily up the ureter and into the renal pelvis. The cystoscope was removed and this guidewire was then back loaded onto a semi rigid mini ureteroscope which was then placed under direct vision riding the wires into the distal ureter. The stone was identified. The working wire was removed and a 365 micron Holmium laser fiber was placed in the standard setting the stone was pulverized into multiple pieces which then were basketed individually and brought out using a 13 mm zero-tip nitinol basket. After all the stones removed the scope was placed all the way as far as could be passed without difficulty making sure there was no damage to the ureter or additional fragments or stones. There was mild bleeding. A decision was made not to leave the ureteral stents and the ureter seems to be widely patent. At this time those stones were basketed and dropped into the bladder were irrigated out and sent for crystallographic analysis. Attention was directed to the right ureteral orifice where a 0.035 inch Hybrid guidewire was placed under fluoroscopic guidance, pass the obstructing stone and into the renal pelvis without difficulty and over this a 6-Sudanese x 24 cm double-J ureteral stent was placed with the help of a pusher. When the stent was in proper position the guidewire pusher removed, under fluoroscopic guidance, there was a nice curl in the renal pelvis and under fluoroscopic guidance and under direct vision in the bladder. The bladder was decompressed, the scope removed. The patient tolerated the procedure well, emerged from anesthetic without difficulty and transferred to the recovery in stable condition to be discharged home when criteria is met. No obvious complications. MD ERIC Walter/LYNNETTE /3:42 PM /6:28 PM
== END | disposition home or self-care (01) ==
LOC: ESDC 12:40
PROVIDERS: ATTEND Urology
DX: N20.1 Calculus of ureter (principal)
CPT/HCPCS: 00910; 00918; 52332; 52353; 76000; C1769; J1580; J1885; J1940; J2250; J2405; J3010; J7120

== ENCOUNTER → 2016-11-04 | Day surgery (SDC) | payer BC ==
[~2016-11-04] MED LIST changes: +DEXAMETHASONE SOD PHOS 4 MG/ML VIAL IV ONE; -FUROSEMIDE 20 MG/2 ML VIAL ONE; +LIDOCAINE HCL 1% PF 5 ML AMPULE OTHER ONE; +MEPERIDINE HCL 50 MG/ML VIAL ONE; +SODIUM CHLORIDE 0.9% 100 ML ADDBAG IV ONE; -SODIUM CHLORIDE 0.9% 20 ML VIAL ONE; -SODIUM CHLORIDE 0.9% SOLN 100 ML BAG IV ONE; +ePHEDrine/NS 25 MG/5 ML SYR IV ONE
--- NOTE | 2016-11-04 16:21 | TN ---
cc: CAROLYN USRESH M.D. DATE OF SURGERY 11/04/2016 PREOPERATIVE DIAGNOSIS Right proximal ureteral calculus (9 mm) (ICD - 10 code of N20.1). POSTOPERATIVE DIAGNOSIS Right proximal ureteral calculus (9 mm) (ICD - 10 code of N20.1). PROCEDURE 1. Cystourethroscopy with right ureteroscopic holmium laser lithotripsy and stone basket manipulation. (CPT code 91723). 2. Cystourethroscopy with right ureteral stent exchange (6-Tunisian x 24 cm). INDICATION Mr. Bravo is a 61-year-old gentleman who previously was treated for a distal left ureteral calculus presents now for treatment of a proximal right ureteral calculus after stent placement for passive dilation of the collecting system. The findings are as follows: Normal urethra with some narrowing at the navicularis fossa. There is a mild to moderate bulbar membranous urethral stricture. The prostatic urethra shows bilateral hyperplasia with mild to moderate obstruction. The ureteral orifice normal size, shape and position effluxing clear urine on the left. On the right there is the distal end of the double-J ureteral stent emerging. There is no significant trabeculation, diverticula or cellules of the bladder. The fluoroscopic imaging shows a large right radiopacity in the areas of the proximal ureter and ureteroscopy shows a proximal stone approximately 9 mm in diameter with no additional abnormalities identified. PROCEDURE IN DETAIL The procedure as well as risks and benefits were explained to the patient and informed consent was obtained. The patient was taken to the major operative theater where he was placed in supine position. The patient was identified as well as the operative site. A universal time-out was formed in standard fashion. At this time general anesthetic and prophylactic intravenous antibiotics consisting of gentamicin 80 mg was administered. After adequate anesthetic he was placed in low dorsolithotomy position, prepped and draped in the usual sterile fashion. At this time a 22 Tunisian cystoscope with a 30 degree lens was inserted in the urethra and bladder with the above findings. Attention was directed to the right ureteral orifice where a grasping forceps was used to grasp the distal end of a double-J ureteral stent. It was pulled out to the level of the meatus. Attempts at passing a 0.035 inch guidewire were unsuccessful and the stent and guidewire were then ultimately just removed and a cystoscope was placed back into the bladder. Attention was directed to the ureteral orifice where a 0.035 inch hybrid wire was passed without difficulty up the ureter under fluoroscopic guidance passed the approximately 9 mm radiopacity and into the renal pelvis. The cystoscope was removed leaving the guidewire in place and this was attached to the drapes as a safety wire. At this time a semi rigid mini ureteroscope was then placed under direct vision up the ureter to the level of the stone. However, the stone was just out of the reach of the rigid ureteroscope and a decision was made to place an access sheath and use a flexible ureteroscope. So at this time a 0.035 inch super stiff guidewire was placed and used as the working wire. The ureteroscope was removed and over the ureteroscope under fluoroscopic guidance a 12/14 Tunisian 35 cm access sheath was placed without difficulty over the super stiff guidewire. The guidewire was then removed leaving the access sheath in place as well as the safety wire. At this time using a flexible ureteroscope under direct vision it was placed all the way to the level of the stone where a 273 micron holmium laser fiber was used at a setting of 20 Hz and 5 joules, holmium laser lithotripsy was performed until the stone was pulverized into multiple small pieces which were then basketed and removed and sent for crystal graphic analysis. At the end of the case the flexible ureteroscope and the access sheath were removed and the rigid ureteroscope was then placed again up the ureter all the way to the just about to the ureteral pelvic junction. There was no evidence of any additional stones. There was some mild debris and minimal bleeding and minimal trauma from the procedure. Decision was made to place a ureteral stent just as a precaution, so the ureteroscope was removed and the safety wire was back loaded onto a cystoscope and over the cystoscope a 6-Tunisian x 24 cm double-J ureteral stent was placed with the help of a pusher. When the proximal end of the stent could be seen in the renal pelvis, the pusher and guidewire were removed. There was a nice curl under fluoroscopy in the renal pelvis and under direct vision in the bladder. The bladder was then decompressed the cystoscope removed. The patient tolerated procedure well, emerged from anesthetic without difficulty and transferred to the recovery room in stable condition to be discharged home when criteria is met. There were no obvious complications. MD CARMENZA Walter /3:45 PM /3:59 PM
== END | disposition home or self-care (01) ==
LOC: ESDC 11:02
PROVIDERS: ATTEND Urology
DX: N20.1 Calculus of ureter (principal)
CPT/HCPCS: 00918; 52356; 76000; C1769; J1100; J1580; J1885; J2175; J2250; J2405; J3010; J7120